=== PATIENT | male | born 1990 | race African-American/Black ===

== ENCOUNTER 2017-01-10 07:16 | Emergency (ER) | payer OTHER ==
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
[2017-01-10 07:39] VITALS: BMI 29.5
[2017-01-10] MEDS ORDERED: OXYCODONE/APAP 5/325MG COMBO TABLET PO ONE (07:44)
[2017-01-10] MEDS ORDERED: OXYCODONE/APAP 5/325MG COMBO TABLET ONE (08:00)
[2017-01-10] MEDS ORDERED: KETOROLAC TROMETHAMINE 60 MG/2 ML VIAL IM ONE (10:47)
[2017-01-10] MEDS ORDERED: KETOROLAC TROMETHAMINE 60 MG/2 ML VIAL ONE (11:09)
[2017-01-10 11:41] VITALS: BP 149/69; PULSE 79; TEMP 98
== END 2017-01-10 11:42 | disposition home or self-care (01) ==
LOC: JER 07:16
PROC: 3E0233Z Introduction of Anti-inflammatory into Muscle, Percutaneous Approach (ICD-10-PCS; principal; 2017-01-10)
DX: S09.8XXA Other specified injuries of head, initial encounter (principal); S49.82XA Other specified injuries of left shoulder and upper arm, initial encounter; V43.51XA Car driver injured in collision with sport utility vehicle in traffic accident, initial encounter; Y92.414 Local residential or business street as the place of occurrence of the external cause; Y93.89 Activity, other specified; Y99.9 Unspecified external cause status
CPT/HCPCS: 70450-TC; 71010-TC; 72125-TC; 73030-TC-LT; 73523-TC; 99282-25